=== PATIENT | female | born 1970 | race Caucasian/White ===

== ENCOUNTER → 2021-08-05 | Day surgery (SDC) | payer OTHER ==
[~2021-08-05] VITALS: Ht 170.2 cm; Wt 81.6 kg
[~2021-08-05] MED LIST: ALLEGRA ALLERG180 MG PO; CAPMIST DM TAB1 EACH PO; HYDROXYZINE HCL50 MG PO; IBUPROFEN800 M1 PO; LANSOPRAZOLE30 MG PO; MELATONIN5 M2 PO; MONTELUKAST SOD10 MG PO; SAVELLA100 MG PO; VENTOLIN HFA18 GM INH; VITAMIN D310 MC1 PO; ZINC50 M1 PO
[2021-08-05 08:09] LABS: HCG (URINE) SCREEN NEGATIVE (NEGATIVE)
[2021-08-05 08:36] LABS: HGB 13.2 g/dl (12.5-16.0); MCH 28.4 pg (25.0-31.0); MCHC 32.2 g/dL (32.0-36.0); MCV 88.4 fL (78.0-100.0); MPV 9.2 fL (6.0-9.5); RBC 4.64 M/uL (4.20-5.40); RDW 13.3 % (11.5-14.0); WBC 5.2 K/uL (4.0-10.5)
== END | disposition home or self-care (01) ==
LOC: FAS 07:46
PROVIDERS: Obstetrics & Gynecology
DX: N95.0 Postmenopausal bleeding (principal); N88.2 Stricture and stenosis of cervix uteri; J45.909 Unspecified asthma, uncomplicated; I10 Essential (primary) hypertension; E11.9 Type 2 diabetes mellitus without complications; Z88.6 Allergy status to analgesic agent; Z88.5 Allergy status to narcotic agent; Z88.0 Allergy status to penicillin; Z91.048 Other nonmedicinal substance allergy status; Z85.828 Personal history of other malignant neoplasm of skin; Z98.84 Bariatric surgery status; Z96.659 Presence of unspecified artificial knee joint; Z98.51 Tubal ligation status; Z72.89 Other problems related to lifestyle
CPT/HCPCS: 36415; 84703; 86850; 86900; 86901; 93005; J1100; J1885; J2250; J2405; J2704; J3010; J7120

== ENCOUNTER → 2021-10-07 | Day surgery (SDC) | payer OTHER ==
[~2021-10-07] VITALS: Ht 170.2 cm; Wt 81.6 kg
[~2021-10-07] MED LIST changes: +COLACE100 MG PO; +CRANBERRY200 MG PO; +MAGNESIUM200 MG PO; +MOTRIN600 MG PO; +PERCOCET 5-3251 EACH PO
[2021-10-07 08:20] LABS: HCG (URINE) SCREEN NEGATIVE (NEGATIVE)
[2021-10-07 08:50] LABS: HCT 40.9 % (37.0-47.0); HGB 13.6 g/dl (12.5-16.0); MCH 28.3 pg (25.0-31.0); MCHC 33.3 g/dL (32.0-36.0); MCV 85.2 fL (78.0-100.0); MPV 9.6 fL (6.0-9.5); RBC 4.8 M/uL (4.20-5.40); RDW 12.5 % (11.5-14.0); WBC 5.9 K/uL (4.0-10.5)
== END | disposition home or self-care (01) ==
LOC: FAS 08:01 → EDSTATUS 09:00 → FAS 09:00
PROVIDERS: Obstetrics & Gynecology
DX: N83.8 Other noninflammatory disorders of ovary, fallopian tube and broad ligament (principal); N95.0 Postmenopausal bleeding; J45.909 Unspecified asthma, uncomplicated; G43.909 Migraine, unspecified, not intractable, without status migrainosus; K21.9 Gastro-esophageal reflux disease without esophagitis; F41.9 Anxiety disorder, unspecified; Z88.5 Allergy status to narcotic agent; Z88.8 Allergy status to other drugs, medicaments and biological substances; Z88.0 Allergy status to penicillin; Z91.048 Other nonmedicinal substance allergy status; Z96.659 Presence of unspecified artificial knee joint; Z98.51 Tubal ligation status
CPT/HCPCS: 36415; 84703; 86850; 86900; 86901; J1580; J1885; J2250; J2405; J2704; J2710; J3010; J7120